=== PATIENT | female | born 1980 ===

== ENCOUNTER 2021-05-16 10:00 | Inpatient (IN) | payer OTHER ==
[~2021-05-16] VITALS: Ht 165.1 cm; Wt 2.7 kg
[2021-05-16] MEDS ORDERED: SYNTHROID50 MCG PO (12:18)
[2021-05-23] MEDS ORDERED: PRENATAL TABLE1 EAC3 PO (11:20)
[2021-05-26] MEDS ORDERED: OXYC1TAB9 PO (09:48)
[2021-05-26] MEDS ORDERED: KETO10TA2 PO (09:48)
== END 2021-05-26 12:08 | disposition home or self-care (01) | DRG 785 ==
LOC: SURH 05-23 07:00 → OB/GYN 05-23 10:35 → O/R 05-23 10:35 → OB/GYN 05-23 15:00
PROVIDERS: ADMIT Obstetrics & Gynecology Maternal & Fetal Medicine; ATTEND Obstetrics & Gynecology Maternal & Fetal Medicine
PROC: 0UB70ZZ Excision of Bilateral Fallopian Tubes, Open Approach (ICD-10-PCS; 2021-05-23)
PROC: 4A1HXFZ Monitoring of Products of Conception, Cardiac Rhythm, External Approach (ICD-10-PCS; 2021-05-23)
PROC: 10D00Z1 Extraction of Products of Conception, Low, Open Approach (ICD-10-PCS; principal; 2021-05-23 07:00)
DX: O34.211 Maternal care for low transverse scar from previous cesarean delivery (principal); Z30.2 Encounter for sterilization; Z37.0 Single live birth; Z3A.39 39 weeks gestation of pregnancy

== ENCOUNTER → 2021-05-16 | Outpatient (CLI) | payer OTHER ==
[~2021-05-16] MED LIST: SYNTHROID50 MCG PO
== END | disposition home or self-care (01) ==
LOC: NST 14:51
PROVIDERS: ATTEND Obstetrics & Gynecology Maternal & Fetal Medicine
DX: Z34.83 Encounter for supervision of other normal pregnancy, third trimester (principal)